=== PATIENT | male | born 1970 | race Caucasian/White ===

== ENCOUNTER 2021-05-24 00:41 | Emergency (ER) | payer OTHER ==
[~2021-05-24] VITALS: Ht 172.7 cm; Wt 88.5 kg
[2021-05-24] MEDS ORDERED: LIDOCAINE /MPF 1% VIAL 5 ML VIAL ONE (00:52)
[2021-05-24] MEDS ORDERED: TDAP [DIPH/PERTUSSIS/TET] 0.5 ML VIAL IM ONE ×2 (00:55→01:00)
--- NOTE | 2021-05-24 01:00 | NUR ---
LACERATION TO LT THUMB, CUT FROM SHARP EDGE OF A BOX. PT AAOX4, VSS. RR EVEN & UNLABORED. DENIES ANY OTHER DISCOMFORT. PT SEEN & EVAL'D BY DR. RIVERS.
--- NOTE | 2021-05-24 01:35 | NUR ---
Patient discharged to home in stable condition. Written and verbal after care instructions given. Patient verbalizes understanding of instruction. REPAIRED LAC INTACT, APPLIED DRESSING ON LT HAND. NO ACTIVE BLEEDING NOTED UPON LEAVING ED.
[2021-05-24 01:37] VITALS: BP 124/78
== END 2021-05-24 01:37 | disposition home or self-care (01) ==
LOC: ER 00:41
DX: S61.412A Laceration without foreign body of left hand, initial encounter (principal); W26.8XXA Contact with other sharp object(s), not elsewhere classified, initial encounter; Y93.01 Activity, walking, marching and hiking; Y92.098 Other place in other non-institutional residence as the place of occurrence of the external cause; Y99.8 Other external cause status
CPT/HCPCS: 12001; 90471; 90715; 99283; A6403; J3490